=== PATIENT | female | born 1950 | race African-American/Black ===

== ENCOUNTER → 2017-09-08 | Outpatient (CLI) | payer MEDICARE ==
--- NOTE | 2017-09-08 14:09 | Diagnostic Imaging Report ---
PROCEDURE: Frontal and lateral views of the chest. COMPARISON: None. INDICATIONS: SHORTNESS OF BREATH, CHEST PAIN FINDINGS: Lines/tubes: None. Lungs: The lungs are well inflated and clear. There is no evidence of pneumonia or pulmonary edema. Pleura: There is no pleural effusion or pneumothorax. Heart and mediastinum: Mild enlargement of the cardiac silhouette. Aortic calcifications. Bones: No acute bony abnormality. Mild degenerative changes of the thoracic spine. IMPRESSION: Mild cardiomegaly. No acute cardiopulmonary disease. Dictated by: Colby Reese M.D. on 09/08/2017 at 14:13 Electronically approved by: Colby Reese M.D. on 09/08/2017 at 14:13
--- NOTE | 2017-09-08 14:11 | Diagnostic Imaging Report ---
PROCEDURE:X-RAY LEFT KNEE, THREE OR MORE VIEWS COMPARISON:None. INDICATIONS:LEFT KNEE PAIN FINDINGS: The bones are well-mineralized. There are no fractures, subluxations, lytic or blastic lesions. Tricompartmental degenerative changes, moderate in the patellofemoral compartment and mild in the lateral and medial compartments. Small patellar enthesophytes. There is a small suprapatellar joint effusion. CONCLUSION: Tricompartmental degenerative changes of the knee. Small joint effusion. Dictated by: Colby Reese M.D. on 09/08/2017 at 14:15 Electronically approved by: Colby Reese M.D. on 09/08/2017 at 14:15
== END ==
LOC: RAD 13:15
PROVIDERS: ATTEND Family Medicine
DX: I11.0 Hypertensive heart disease with heart failure (principal); M25.562 Pain in left knee
CPT/HCPCS: 71046

== ENCOUNTER → 2018-04-18 | Outpatient (CLI) | payer MEDICARE ==
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
== END ==
LOC: RAD 13:59
PROVIDERS: ATTEND Family Medicine
DX: M54.5 Low back pain (principal)
CPT/HCPCS: 72100

== ENCOUNTER → 2018-05-16 | Outpatient (CLI) | payer OTHER ==
--- NOTE | 2018-05-16 16:39 | Diagnostic Imaging Report ---
Exam: Bilateral knees 3 views History: Knee pain Comparison: None. Findings: Motion artifact limits the right knee AP film. No acute, displaced fracture or dislocation. There is symmetric moderate tricompartmental joint space narrowing with marginal osteophytosis, subchondral sclerosis, and subchondral cystic changes. Soft tissues unremarkable. Impression: Moderate symmetric bilateral tricompartmental degenerative joint disease. Signed by: Dr. Enio Rosales M.D. on 05/16/2018 4:36 PM
== END ==
LOC: RAD 15:18
PROVIDERS: ATTEND Family Medicine
DX: M25.562 Pain in left knee (principal); M25.561 Pain in right knee

== ENCOUNTER → 2018-06-16 | Outpatient (CLI) | payer MEDICARE ==
--- NOTE | 2018-06-16 16:35 | Diagnostic Imaging Report ---
Radiographs of the right and left knee - 3 views each knee HISTORY: Pain COMPARISON: None available. FINDINGS: Bones: No acute displaced fracture. Osseous alignment is within normal limits. Joints: Moderate tricompartmental degenerative arthrosis. No osseous erosion. Soft tissues: The soft tissues appear unremarkable. IMPRESSION: Moderate tricompartmental degenerative arthrosis. No osseous erosion. Signed by: Dr. Alf Lynch M.D. on 06/16/2018 4:31 PM
== END ==
LOC: RAD 15:54
PROVIDERS: ATTEND Family Medicine
DX: M25.562 Pain in left knee (principal); M25.561 Pain in right knee

== ENCOUNTER 2019-10-21 21:40 | Emergency (ER) | payer MEDICARE ==
[~2019-10-21] VITALS: Ht 157.5 cm; Wt 98.0 kg
[2019-10-21] MEDS ORDERED: KETOROLAC TROMETHAMINE 30 MG/ML VIAL IV STA (22:11)
--- NOTE | 2019-10-21 22:13 | Emergency Department Note ---
History of Present Illnes History of Present Illness Chief Complaint: Flank Pain History of Present Illness This is a 69 year old female . Arrival Mode: Car Realtime Reporter Required: No Onset (how long ago): week(s) (4 weeks) Location: left flank radiating to the front and chest Quality: sharp Radiation: Reports abdomen (and burning in the chest) Severity: moderate Onset quality: sudden (seen 3 weeks ago in a different ER told she has kidney stones) Duration (how long): week(s) (4) Timing of current episode: constant Progression: unchanged Chronicity: new Relieving factors: none Exacerbating factors: none, movement (from side to side or with bending of the abdomen) Associated symptoms: Reports chest pain (pain starts in the abdomen and radiates into the chest described as burning) Treatments prior to arrival: none Risk factors: htn hx of kidney stones Past Medical/Family History Physician Review I have reviewed the patient's past medical and family history. Any updates have been documented here. Past Medical History Recent Fever: No Clinical Suspicion of Infectio: No New/Unexplained Change in Ment: No Past Medical History: Hypertension Past Surgical History: None Social History Smoking Cessation: Never Smoker Alcohol Use: None Any Illegal Drug Use: No Physically hurt or threatened: No Other Any Pre-Existing Lines (PICC,: No Review of Systems Review of Systems Constitutional: Reports no symptoms EENTM: Reports no symptoms Cardiovascular: Reports as per HPI Respiratory: Reports no symptoms Gastrointestinal: Reports as per HPI Genitourinary: Reports no symptoms Musculoskeletal: Reports no symptoms Integumentary: Reports no symptoms Neurological: Reports no symptoms Psychological: Reports no symptoms Endocrine: Reports no symptoms Hematological/Lymphatic: Reports no symptoms Review of other systems: All other systems negative Physical Exam Related Data Vital signs reviewed: Yes Physical Exam CONSTITUTIONAL Constitutional: Present well-developed, Present well-nourished HENT HENT: Present normocephalic, Present atraumatic EYES Eyes: Reports PERRL, Reports conjunctivae normal, Reports EOM normal, Reports lids normal NECK Neck: Present ROM normal, Present supple PULMONARY Pulmonary: Present effort normal, Present breath sounds normal CARDIOVASCULAR Cardiovascular: Present regular rhythm, Present heart sounds normal, Present intact distal pulses, Present capillary refill normal, Present normal rate GASTROINTESTINAL Abdominal: Present soft, Present bowel sounds normal, Present tender (epigastric area and left flank), Present left CVA tenderness GENITOURINARY Genitourinary: Present exam deferred SKIN Skin: Present warm, Present dry MUSCULOSKELETAL Musculoskeletal: Present ROM normal, Present edema NEUROLOGICAL Neurological: Present alert, Present oriented x 3, Present DTRs normal, Present no gross motor or sensory deficits PSYCHOLOGICAL Psychological: Present mood/affect normal, Present behavior normal, Present thought content normal, Present judgement normal Results Laboratory Laboratory cbc mild anemia ow wnl chem wnl except creat 1.2 cardiac markers wnl Laboratory comments ua dip WNL Imaging Imaging results reviewed: Yes Impressions ct abd/pelvis severe coronary artery calcifications. gall stones without evidence of acute cholycystitis. No kidney or urethral stones. Diverticulosis without evidence if diverticulitis. No acute abdominal process Diagnostics Tests Diagnostic test(s) reviewed: Yes Diagnostic comments ekg interpreted by me NSR rate 72 axis intrevals WNl no st t wave changes. Sinus arrhythmia Assessment & Plan Medical Decision Making MDM pain continuous for 1 month as per patient Cardiac christensen negative in the ED. Pain clearly flack radiating to the abdomen and the chest. Pt needs further work up by her PMD. Will start the patient on prilosec to see if this helps her pain. Also will give ultram for pain Reassessment Reassessment time: 00:25 Reassessment still co left flank pain worse with movement. Stressed to pt need to follow up with PMD . Also told her that she could return for any further problems Assessment & Plan Final Impression: (1) Flank pain Depart Disposition: HOME, SELF-alf Meds Active Scripts Omeprazole Magnesium (PRILOSEC) 10 Mg Suspdr.pkt, 20 MG PO DAILY for abdominal pain for 30 Days, #30 0 Refills Prov:LINDA SHAH MD 10/22/19 Tramadol Hcl* (ULTRAM 50MG*) 50 Mg Tab, 50 MG PO Q6H PRN for PAIN, #14 TAB 0 Refills Prov:LINDA SHAH MD 10/22/19 LINDA SHAH MD Oct 21, 2019 22:13
[2019-10-21] MEDS ORDERED: KETOROLAC TROMETHAMINE 30 MG/ML VIAL ONE (22:38)
--- OUTSIDE RECORDS SUMMARY | 2019-10-21 22:55 | XMS REPORT | Encounter Summary ---
Author Organization Unknown Address [address] [place] [address] Phone [phone] Care Team Providers Care Lace Finisher Name Role Phone Dr. Nigel Velarde 3 [phone] Nigel Velarde Jr, MD 3 [phone] Seth Xie DPM 120 [phone] Jane Franco MD 122 [phone] Reason for Visit Peripheral vascular disease; Quality BMI DEPRESSION FALL; AWV Annual Wellness Visit Female (VFP); hypertension Instructions 1. Adult health examination 2. Body mass index 40+ - severely obese learning about healthy weight body mass index: care instructions 3. Morbid obesity learning about healthy weight 4. Peripheral vascular disease 5. Advance directive discussed with jean pierre ent advance care planning: care instructio ns 6. Depression screening 7. At risk for falls preventing falls: care instructions 8. Hypertensive heart disease with conge stive heart failure CMP, serum or plasma carvedilol 25 mg tablet Daily Multivitamin-Minerals tablet 9. Angina pectoris 10. Impaired fasting glycaemia HbA1c (hemoglobin A1c), blood Discussion Note: None recorded. Plan of Care Patient Instructions Screening Recommendations 1. Vaccines Pneumococcal: Recommended today Influenza: Recommended today Shingles: Recommended today Tetanus: Recommended today 2. Mammography Screening: discussed to y and information sent with patient in their Annual Wellness health folder 3. Colorectal cancer Screening Colonoscopy: discussed today and information sent with patient in their Annual Wellness health folder Fecal Occult Blood: discussed today and information sent with patient in their Annual Wellness health folder 4. Bone Mass Measurement: discussed to 5. Pap test / Pelvic Exam Screening: No screening necessary 6. Eye Exam Screening: discussed today 7. Cholesterol Screening: discussed to y 8. Diabetes Screening: discussed today It was good to see you in the office today for your Medicare Annual Wellness Visit. You have been provided some information on healthy nutrition, including a diet rich in fruits and vegetables, minimizing simple carbohydrates, salt, and saturated fats. I want to encourage regular cardiovascular exercise such as walking at least 30 minutes daily, 5 times per week. Please remember to schedule any preventive health measures that we talked about today. You have also been provided education on fall prevention and community- based lifestyle interventions to help reduce health risks and promote healthy living in your Annual Wellness folder. Reminders Provider Appointments Est Patient 08/22/2018 2:00PM Nigel perez Jr, MD Lab CMP, Serum or Plasma 05/23/2018 [facility] Laboratory HbA1C (Hemoglobin a1C), Blood 05/23/2018 [facility] Laboratory Referral None recorded. Procedures None recorded. Surgeries None recorded. Imaging None recorded. Medications Name Start Date amlodipine 10 mg tablet Take 1 tablet every day by oral route. carvedilol 12.5 mg tablet Take 1 tablet twice a day by oral route for 90 days. carvedilol 25 mg tablet Take 1 tablet twice a day by oral route for 90 days. Daily Multivitamin-Minerals tablet Take 1 tablet every day by oral route for 90 days. naproxen 500 mg tablet Take 1 tablet twice a day by oral route for 15 days. triamcinolone acetonide 0.1 % topical oi ntment APPLY A THIN LAYER TO THE AFFECTED AREA(S) BY TOPICAL ROUTE 2 TIMES PER DAY valsartan 320 mg tablet Take 1 tablet every day by oral route for 90 days. Medications Administered None recorded. Vitals Height Weight BMI Blood Pressure 5 ft 2 in 231 lbs 42.3 kg/m2 148/88 mm[Hg] Lab Results None recorded. Allergies Code Code System Name Reaction Severity Status Onset NKDA Problems Name Status Onset Date Source Generalized Anxiety Disorder Active 06/28/2017 Morbid Obesity Active 06/29/2017 Benzodiazepine Dependence Active 06/29/2017 Peripheral Venous Insufficiency Active 06/29/2017 Osteoarthritis Active 06/29/2017 Aortic Valve Disorder Active 07/16/2017 Angina Pectoris Active 07/16/2017 Left Ventricular Hypertrophy Active 07/16/2017 Peripheral Vascular Disease Active 08/19/2017 Claudication Active 08/19/2017 Hypertensive Heart Disease with Congestive Heart Failure Active 09/07/2017 Chronic Obstructive Lung Disease Active 01/25/2018 Inflammation of Sacroiliac Joint Active 04/25/2018 Atherosclerosis of Aorta Active 05/21/2018 Procedures Date Name Performed by Tubal Ligation Information not avai lable 05/06/2018 CT, Angiogram, Abdominal Aorta, W/ Runof f, W/ Contrast [facility] [place] [address] [place] [address] (Work Place) 05/11/2018 XR, Knee, [address] [facility] (Imaging Scheduling) [address] [place] [address] (Work Place) Vaccine List None recorded. Social History Smoking Status Former Smoker (1 2 PPD) Past Encounters 05/23/2018 Adult Health Examination; Body Mass Index 40+ - Severely Obese; Morbid Obesity; Peripheral Vascular Disease; Advance Directive Discussed with Patient; Depression Screening; At Risk for Falls; Hypertensive Heart Disease with Congestive Heart Failure; Angina Pectoris; Impaired Fasting Glycaemia Nigel Velarde Jr, MD: [address] [facility], [address], [place] [address], Ph. History of Present Illness Hypertension Reported By: Patient HPI: Severity: mild. Onset/Timing : gradual onset. Alleviating Factors: relieved with rest, medication. Self Care: not under emotional stress, blood pressure goal: 130/80. Associated Symptoms: no shortness of breath, no fatigue, no decline in exercise capacity Hyperlipidemia Reported By: Patient HPI: Type of hyperlipidemia: comb ined, hypercholesterolemia. Duration: chronic. Current Therapy: currently taking:. Complications: no coronary artery disease Review of Systems Comprehensive General Adult ROS Reported By: Patient Constitutional: Constitutional: no significa nt weight gain, no significant weight loss Cardiovascular: Cardiovascular: no chest aneudy n, no shortness of breath when walking Respiratory: Respiratory: no cough, no wh eezing, no shortness of breath Endocrine: Endocrine: no fatigue Physical Exam Cardiology Exam Reported By: Patient Constitutional: General Appearance: well-nou rished, well-developed, appears stated age. Level of Distress: comfortable Lungs: Respiratory Effort: unlabore d. Chest Exam: no chest wall tenderness. Auscultation: clear, no wheezing, no rales, no rhonchi Cardiovascular: Rate And Rhythm: regular. He art Sounds: normal S1, physiologically split S2, no rub, no gallop, no click. Systolic Murmur: not heard. Diastolic Murmur: not heard. Extremities: no cyanosis, no edema, no peripheral signs of emboli Peripheral Pulses: Pulses: full and equal in al l extremities except if noted Skin: Inspection and Palpation: wa rm and dry
--- OUTSIDE RECORDS SUMMARY | 2019-10-21 22:55 | XMS REPORT | Encounter Summary ---
Author Organization Unknown Address [address] [place] [address] Phone [phone] Care Team Providers Care Plant Propagator Name Role Phone Dr. Nigel Velarde 3 [phone] Nigel Velarde Jr, MD 3 [phone] Seth Xie DPM 120 [phone] Jane Franco MD 122 [phone] Reason for Visit Peripheral vascular disease; Quality [...] your Annual Wellness folder. Reminders Provider Appointments None recorded. Lab CMP, Serum or Plasma 05/23/2018 [facility] Laboratory HbA1C (Hemoglobin a1C), Blood 05/23/2018 [facility] Laboratory Referral None recorded. Procedures None [...] Abdominal Aorta, W/ Runof f, W/ Contrast [facility] [place] [address] [place] [address] (Work Place) 05/11/2018 XR, Knee, 3 View Patients [facility] (Imaging Scheduling) [address] [place] [address] (Work Place) Vaccine List None recorded. Social History Smoking Status Former Smoker (1 2 PPD) Past Encounters 05/23/2018 Adult Health Examination; Body Mass Index 40+ - Severely Obese; Morbid Obesity; Peripheral Vascular Disease; Advance Directive Discussed with Patient; Depression Screening; At Risk for Falls; Hypertensive Heart Disease with Congestive Heart Failure; Angina Pectoris; Impaired Fasting Glycaemia Nigel Velarde Jr, MD: [address] [facility], [address], [place] [address], Ph. History of Present Illness Hypertension Reported [...]
--- OUTSIDE RECORDS SUMMARY | 2019-10-21 22:55 | XMS REPORT | Summary of Care ---
Author Author JOSE BYERS Organization Unknown Address Unknown Phone Unavailable Care Team Providers Care Radiologist Physician Name Role Phone SOULEYMANE BYERS Unavailable Unavailable DIEUDONNE HOOD, VIRGINIA LAIRD Unavailable Unavailable GLEN HOOD, LADRAIUS Unavailable Unavailable SOULEYMANE STARR Unavailable Unavailable ANTELMO CASAS MD Unavailable Unavailable Unavailable Unavailable Functional Status Name Dates Details Functional status health issues are not documented Status: Name Dates Details Cognitive status health issues are not d ocumented Status: Problems Name Dates Details Active medical history not documented Status: Medications Name Dates Details Medications not documented Allergies and Adverse Reactions Name Dates Details Allergy history not documented Status: Procedures Procedure Dates Details Procedures not documented Immunization Name Dates Details Immunizations not documented Social History Name Dates Details Tobacco smoking consumption unknown (finding) Vital Signs Date Test Result Details No Known Vitals to report Results Date Description Value Details Results not documented Plan of Care Name Dates Details Planned Observations Planned Goals not documented Instructions Name Dates Details Instructions not documented Encounters Appointment; SOULEYMANE BYERS Encounter Diagnosis: Problem not documented On: 22-Nov-2018 8:30 Appointment; ANTELMO CASAS M.D. Encounter Diagnosis: Problem not documented On: 22-Nov-2018 9:00 Appointment; SOULEYMANE BYERS Encounter Diagnosis: Problem not documented On: 20-Jul-2019 13:30 Appointment; SOULEYMANE BYERS Encounter Diagnosis: Problem not documented On: 10-Aug-2019 14:30
--- OUTSIDE RECORDS SUMMARY | 2019-10-21 22:55 | XMS REPORT | Clinical Summary ---
Author Author [facility] Address Unknown Phone Unavailable Care Team Providers Care Stock Buyer Name Role Phone Nigel Velarde MD PCP Allergies No Known Allergies Medications End Date Status Medication Sig Dispensed Refills Start Date Active amLODIPine (NORVASC) 5 mg amlodipine 5 0 tablet mg tablet Take 1 tablet every day by oral route for 90 days. Active valsartan 160 MG tablet 1 Take by mouth 0 tablet, daily. hydroCHLOROthiazide 25 MG tablet 1 tablet Active gabapentin (NEURONTIN) TAKE 1 90 capsule 0 100 mg capsule CAPSULE BY 9 MOUTH THREE TIMES DAILY FOR 30 DAYS Active Problems Problem Noted Date Bilateral foot pain 06/20/2018 Last Assessment & Plan: Suspect neuropathy is the predominant c ause of her bilateral foot pain. She has bilateral palpable pedal pulses . Recommended trial of gabapentin which I prescribed to her. We will fol low her up in 1 month. Family History Medical History Relation Name Comments Circulation Problems with Mother Legs Relation Name Status Comments Mother Social History Date Tobacco Use Types Packs/Day Years Used Quit: 03/15/1979 Former Smoker Smokeless Tobacco: Never Used Drinks/Week oz/Week Comments Alcohol Use Yes Sex Assigned at Date Recorded Not on file Industry Job Start Date Occupation Not on file Not on file Not on file Travel End Travel History Travel Start No recent travel history available. Last Filed Vital Signs Not on file Plan of Treatment Health Maintenance Due Date Last Done Comments BREAST CANCER SCREENING 10/04/2001 COLONOSCOPY SCREENING 10/04/2001 SHINGLES VACCINES (#1) 10/04/2001 65+ PNEUMOCOCCAL VACCINE 10/04/2016 (1 of 2 - PCV13) INFLUENZA VACCINE 10/14/2019 Results Not on fileafter 10/20/2018 Insurance Type Payer Benefit Subscriber ID Effective Phone Address Plan / Dates Group HMO HU[employer]NA MEDICARE HUMANA HMO xxxxxxxxx [id number] GOLD PLUS resent MEDICARE Advance Directives For more information, please contact: [phone] Patient Surgery Tech Explanation Type Date Recorded Advance Directives, Living Will and Medical Power of Casualty Claims Supervisor
--- OUTSIDE RECORDS SUMMARY | 2019-10-21 22:55 | XMS REPORT | Encounter Summary ---
Author Organization Unknown Address [address] [place] [address] Phone [phone] Care Team Providers Care Paint Supervisor Name Role Phone Dr. Nigel Velarde 3 [phone] Nigel Velarde Jr, MD 3 [phone] Seth Xie DPM 120 [phone] Jane Franco MD 122 [phone] Reason for Visit muscle cramps; hypertension Instructions 1. Hypertensive heart disease with conge stive heart failure 2. Screening for cardiovascular system d isease ankle brachial index - Peripheral Snehal ry Disease Ratio (QuantaFlo) 3. Peripheral vascular disease Discussion Note: None recorded. Patient educational handouts: No information available. Plan of Care Reminders Provider Appointments None recorded. Lab None recorded. Referral None recorded. Procedures None recorded. Surgeries None recorded. Imaging Ankle Brachial Index 04/21/2018 [facility] Medications Name Start Date amlodipine 10 mg [...] BMI Blood Pressure 5 ft 2 in 227 lbs 41.5 kg/m2 (1) 164/82 mm[H g] (2) 132/82 mm[Hg] Lab Results Date Name Specimen Result Interpretation Description Value Range Status Address Ankle Brachial Index Result: Significant [facility]: [address] Allergies Code Code System Name Reaction Severity [...] 09/07/2017 Chronic Obstructive Lung Disease Active 01/25/2018 Procedures Date Name Performed by Tubal Ligation Information not avai lable 04/07/2018 XR, Lumbosacral Spine, 2 or 3 View Patie [facility] (Imaging Scheduling) [address] [place], [place] [id number] (Work Place) 04/21/2018 Ankle Brachial Index [facility] [address] [address] (Work Place) Vaccine List None recorded. Social History Smoking Status Former Smoker (1 1/2 PPD) Past Encounters 04/21/2018 Hypertensive Heart Disease with Congestive Heart Failure; Screening for Cardiovascular System Disease; Peripheral Vascular Disease Nigel Velarde Jr, MD: [address] [address], Ph. 04/07/2018 Hypertensive Heart Disease with Congestive Heart Failure; Chronic Obstructive Lung Disease; Chronic Low Back Pain; Eczema; Foot Callus; Single Major Depressive Episode; Morbid Obesity Nigel Velarde Jr, MD: [address] [address], Ph. History of Present Illness Hypertension Reported By: Patient HPI: Severity: mild. Onset/Timing : gradual onset. Alleviating Factors: relieved with rest, medication. Self Care: not under emotional stress, blood pressure goal: 130/80. Associated Symptoms: no shortness of breath, no fatigue, no decline in exercise capacity Review of Systems Comprehensive General Adult ROS [...] Lungs: Respiratory Effort: unlabore d. Chest Exam: normal curvature, no thoracic deformity, no chest wall tenderness. Auscultation: clear, no wheezing, no rales, no rhonchi Cardiovascular: Rate And Rhythm: regular. He art Sounds: normal S1, physiologically split S2, no rub, no gallop, no click. Systolic Murmur: not heard. Diastolic Murmur: not heard. Extremities: no cyanosis, no edema, no peripheral signs of emboli Peripheral Pulses: Pulses: full and equal in al l extremities except if noted. Radial Pulse: normal Skin: Inspection and Palpation: wa rm and dry. Nails: no clubbing
--- OUTSIDE RECORDS SUMMARY | 2019-10-21 22:55 | XMS REPORT | Encounter Summary ---
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 Nigel Velarde 3 [phone] Nigel Velarde Jr, MD 3 [phone] Jane Franco MD 122 [phone] Reason for Visit Bilateral foot pain Instructions 1. Hypertensive heart disease with conge stive heart failure valsartan 320 mg tablet amlodipine 10 mg tablet 2. Chronic obstructive lung disease 3. Chronic low back pain XR, lumbosacral spine, 2 or 3 view 4. Eczema triamcinolone acetonide 0.1 % topical ointment 5. Foot callus podiatry referral naproxen 500 mg tablet 6. Single major depressive episode depression treatment: care instruction s 7. Morbid obesity Discussion Note: None recorded. Plan of Care Reminders Provider Appointments Est Patient 04/21/2018 1:30PM Nigel perez Jr, MD Lab None recorded. Referral Podiatry Referral 04/07/2018 Procedures None recorded. Surgeries None recorded. Imaging XR, Lumbosacral Spine, 2 or 3 View 04/07/2018 Medications Name Start Date amlodipine 10 mg [...] ft 2 in 227 lbs 41.5 kg/m2 180/84 mm[Hg] Lab Results None recorded. Allergies Code [...] XR, Lumbosacral Spine, 2 or 3 View Infor mation not available Vaccine List None recorded. Social History Smoking Status Former Smoker (1 2 PPD) Past Encounters 04/07/2018 Hypertensive Heart Disease with Congestive Heart Failure; Chronic Obstructive Lung Disease; Chronic Low Back Pain; Eczema; Foot Callus; Single Major Depressive Episode; Morbid Obesity Nigel Velarde Jr, MD: [id number] [facility], [address], [place] [address], Ph. History of Present Illness Musculoskeletal Pain Reported By: Patient HPI: Location: pain is not radiat ing, bilateral foot. Quality: dull. Severity: worsening. Duration: present <1 month. Timing: constant. Alleviating factors: rest. Aggravating factors: movement/positioning. Associated Symptoms: no fever, no weak limbs, no tingling, no numbness of the legs/feet Review of Systems Comprehensive Adult Problem ROS Reported By: Patient Constitutional: Constitutional: no significa nt weight change, good appetite Cardiovascular: Cardiovascular: no chest aneudy n Musculoskeletal: Musculoskeletal: no soft tis jessica swelling, no joint swelling, moves all extremities well, no previous injuries, no trauma Skin: Skin: no redness, no skin le sions, no swelling, no bruising Neurological symptoms: Neuro: no numbness, no weakn ess, no tingling Physical Exam Musculoskeletal and Joint Ex am, Neurology Exam, Foot Only (Brief) Reported By: Patient Musculoskeletal System: Musculoskeletal System beryl l range of motion in all peripheral joints Constitutional: Weight: well-nourished. Ambu lation: ambulates independently Head: Size/Trauma: normocephalic Mental Status: Orientation oriented to pers on, oriented to place, oriented to time. Mood/Affect: appropriate mood, appropriate affect. Language: has spontaneous speech. Memory: recent memory intact, remote memory intact. Fund of Knowledge: current events, past history Dermatological: Skin Foot Right hyperpigment ation, plantar; callous. Skin Foot Left hyperpigmentation, plantar; callous
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
--- OUTSIDE RECORDS SUMMARY | 2019-10-21 22:55 | XMS REPORT | Summary of Care ---
Author Author JOSE BYERS Organization Unknown Address Unknown Phone Unavailable Care Team Providers Care Topstitcher Zigzag Name Role Phone SOULEYMANE BYERS Unavailable Unavailable DIEUDONNE HOOD, VIRGINIA LAIRD Unavailable Unavailable GLEN HOOD, LADARIUS Unavailable Unavailable SOULEYMANE STARR Unavailable Unavailable ANTELMO [...] Details Planned Observations Planned Goals not documented Planned Encounters Appointment; SOULEYMANE BYERS On: 10-Aug-2019 14:30 Instructions Name Dates Details Instructions not documented Encounters Appointment; SOULEYMANE BYERS Encounter Diagnosis: Problem not documented On: 22-Nov-2018 8:30 Appointment; ANTELMO CASAS M.D. Encounter Diagnosis: Problem not documented On: 22-Nov-2018 9:00 Appointment; SOULEYMANE BYERS Encounter Diagnosis: Problem not documented On: 20-Jul-2019 13:30
--- OUTSIDE RECORDS SUMMARY | 2019-10-21 22:55 | XMS REPORT ---
Author Organization Unknown Address [address] [place] [id number] Phone [phone] Care Team Providers Care Documentation Writer Name Role Phone Nigel Velarde Jr Unavailable Unavailable Allergies Code Code System Name Reaction Severity Status Onset NKDA Medications Name Status Start Date Stop Date amlodipine 5 mg tablet Take 1 tablet every day by oral route. Active Not available clonazepam 0.5 mg tablet Take 1 tablet twice a day by oral route for 30 days. Active Not available hydrochlorothiazide 25 mg tablet Take 1 tablet every day by oral route for 90 days. Active Not available lisinopril 40 mg tablet Take 1 tablet every day by oral route for 90 days. Completed 06/28/2017 meloxicam 15 mg tablet Take 1 tablet every day by oral route for 90 days. Active Not available potassium chloride ER 10 mEq tablet,exte nded release Take 1 tablet every day by oral route. Active Not available sertraline 50 mg tablet Take 1 tablet every day by oral route. Active Not available valsartan 320 mg tablet Take 1 tablet every day by oral route. Active Not available Problems Name Status Onset Date Source Generalized Anxiety Disorder Active 06/28/2017 Benign Essential Hypertension Active 06/28/2017 Morbid Obesity Active 06/29/2017 Benzodiazepine Dependence Active 06/29/2017 Peripheral Venous Insufficiency Active 06/29/2017 Osteoarthritis Active 06/29/2017 Procedures Date Name Performed by 06/28/2017 Electrocardiogram [facility] [employer] [address] [id number] (Work Place) 06/28/2017 XR, Chest, 2 View [facility] [employer] [address] [phone] (Work Place) Notes: Patient indicated no previous meggan geries on (06/28/2017) Lab Results Date Name Specimen Result Interpretation Description Value Range Status Address Urinalysis, Dipstick Color Color light yell [facility] - [place]: [address] [place] Color Appearance clear [facility] - [place]: [address] [place] Color Glucose negative [facility] - [place]: [address] [place] Color Bilirubin negative [facility] - [place]: [address] [place] Color Ketones trace [facility] - [place]: [address], [place] Color Specific [place] 1.025 [facility] - [place]: [address] [place] Color Blood negative [facility] - [place] [address] [place] Color PH 5.5 [facility] - [place]: [address] [place] Color Protein 30 [facility] - [place]: [address] [place] Color Urobilinogen 0.2 [facility] - [place]: [address] [place] Color Nitrites negative [facility] - [place]: [address] [place] Color Leukocytes negative [facility] - [place]: [address] [place] Past Encounters 06/28/2017 Adult Health Examination; Body Mass Index 30+ - Obesity; Obesity; Advance Directive Discussed with Patient; Depression Screening; At Risk for Falls; Benign Essential Hypertension; Peripheral Venous Insufficiency; Chest Pain; Impaired Glucose Tolerance; Morbid Obesity; Osteoarthritis; Generalized Anxiety Disorder; Benzodiazepine Dependence; Cramp in Lower Limb; Screening for Disorder; Screening for Cardiovascular System Disease; Immunization Refused Nigel Velarde Jr, MD: [address] [facility], [address], [place] [address], Ph. Social History Smoking Status Never Smoker Vaccine List None recorded. Plan of Care Patient Instructions Screening Recommendations 1. Vaccines Pneumococcal: Recommended today Influenza: Recommended today Shingles: Recommended today Tetanus: discussed today and information sent with patient in their [facility] folder 2. Mammography Screening: discussed to y and information sent with patient in their [facility] folder 3. Colorectal cancer Screening Colonoscopy: Recommended today Fecal Occult Blood: Recommended today 4. Bone Mass Measurement: discussed toda y 5. Pap test / Pelvic Exam Screening: dis cussed today 6. Eye Exam Screening: discussed today 7. Cholesterol Screening: Ordered 8. Diabetes Screening: Ordered It was go od to see you in the office today [...] risks and promote healthy living in your [facility] folder. Reminders Provider Appointments None recorded. Lab None recorded. Referral None recorded. Procedures None recorded. Surgeries None recorded. Imaging None recorded. Vitals Height Weight BMI Blood Pressure 5 ft 2 in 213 lbs 39 kg/m2 184/90 mm[Hg]
--- NOTE | 2019-10-22 00:02 | Diagnostic Imaging Report ---
EXAM: CT Abdomen and Pelvis WITHOUT contrast INDICATION: rule out kidney stones COMPARISON: None. TECHNIQUE: Abdomen and pelvis were scanned utilizing a multidetector helical scanner from the lung base to the pubic symphysis without administration of IV contrast. Absence of intravenous contrast decreases sensitivity for detection of focal lesions and vascular pathology. Coronal and sagittal reformations were obtained. Routine protocol was performed. IV CONTRAST: None ORAL CONTRAST: None COMPLICATIONS: None RADIATION DOSE: Total DLP: 720.58 mGy*cm Estimated effective dose: (DLP x 0.015 x size factor) mSv CTDIvol has been reviewed. It is below the limits set by the Radiation Protocol Committee (RPC). Dose modulation, iterative reconstruction, and/or weight based adjustment of the mA/kV was utilized to reduce the radiation dose to as low as reasonably achievable. FINDINGS: LINES and TUBES: None. LOWER THORAX: Severe coronary artery calcifications. HEPATOBILIARY: No focal hepatic lesions. No biliary ductal dilation. GALLBLADDER: Cholelithiasis without evidence of acute cholecystitis. SPLEEN: No splenomegaly. PANCREAS: No focal masses or ductal dilatation. ADRENALS: No adrenal nodules KIDNEYS/URETERS: No hydronephrosis. No cystic or solid mass lesions. No stones. GI TRACT: No abnormal distention, wall thickening, or evidence of bowel obstruction. Appendix is normal. Colonic diverticulosis without evidence of acute diverticulitis. PELVIC ORGANS/BLADDER: Unremarkable. LYMPH NODES: No lymphadenopathy. VESSELS: Scattered atherosclerotic calcifications of the aorta and its major branches. No aortic aneurysm. Pelvic phleboliths. PERITONEUM / RETROPERITONEUM: No free air or fluid. BONES: Degenerative changes of the lumbar spine.. SOFT TISSUES: Unremarkable. IMPRESSION: 1. No urinary tract calculi identified. No hydronephrosis. 2. Cholelithiasis without evidence of acute cholecystitis. 3. Colonic diverticulosis without evidence of acute diverticulitis. 4. No acute abdominopelvic process. Signed by: Des Corrigan MD on 10/21/2019 11:59 PM
[2019-10-22] MEDS ORDERED: PRILOSEC10 M1 PO (00:25)
[2019-10-22] MEDS ORDERED: ULTRAM 50MG50 MG PO (00:25)
[2019-10-22] MEDS ORDERED: TRAMADOL HCL 50 MG TAB ONE (01:19)
[2019-10-22] MEDS ORDERED: TRAMADOL HCL 50 MG TAB PO ONE (01:30)
== END 2019-10-22 01:55 | disposition home or self-care (01) ==
LOC: FSED 21:50
DX: R10.9 Unspecified abdominal pain (principal); I10 Essential (primary) hypertension
CPT/HCPCS: 74176; 80053; 81003; 82553; 84484; 85025; 93005; 99284; J1885

== ENCOUNTER 2020-06-23 06:10 | Emergency (ER) | payer MEDICARE ==
[~2020-06-23] VITALS: Ht 157.5 cm; Wt 93.9 kg
[~2020-06-23 06:10] MED LIST: PRILOSEC10 M1 PO; ULTRAM 50MG50 MG PO
[2020-06-23] MEDS ORDERED: ONDANSETRON HCL INJ 2MG/ML 2ML 2 MG/ML VIAL IV STA ×2 (06:29→08:25)
[2020-06-23] MEDS ORDERED: SODIUM CHLORIDE 0.9% 1000ML 1,000 ML IV STA (06:29)
[2020-06-23] MEDS ORDERED: FAMOTIDINE 20 MG/2 ML VIAL IV STA (06:33)
[2020-06-23] MEDS ORDERED: SODIUM CHLORIDE 0.9% 1000ML 1,000 ML ONE (06:59)
[2020-06-23] MEDS ORDERED: FAMOTIDINE 20 MG/2 ML VIAL IV ONE (06:59)
[2020-06-23] MEDS ORDERED: ONDANSETRON HCL INJ 2MG/ML 2ML 2 MG/ML VIAL ONE ×2 (06:59→08:30)
[2020-06-23 07:37] LABS: BASOPHILS # (AUTO) 0.1 (0.0-0.1); BASOPHILS % 0.5 % (0.0-1.0); EOSINOPHILS # (AUTO) 0.1 (0.0-0.4); EOSINOPHILS % 1.2 % (0.0-6.0); HEMATOCRIT 37.2 % (34.2-44.1); LYMPHOCYTES # (AUTO) 1.9 (1.0-3.2); LYMPHOCYTES % 21.2 % (18.0-39.1); MEAN CORPUSCULAR HEMOGLOBIN 29.5 pg (28-32); MEAN CORPUSCULAR HGB CONC 32.3 g/dL (31-35); MEAN CORPUSCULAR VOLUME 91.4 fL (81-99); MONOCYTES # (AUTO) 0.8 (0.2-0.8); MONOCYTES % 8.9 % (4.4-11.3); NEUTROPHILS # (AUTO) 6.2 (2.1-6.9); NEUTROPHILS % 67.9 % (38.7-80.0); PLATELET COUNT 220 x10e3/uL (140-360); RED BLOOD COUNT 4.07 x10e6/uL (3.6-5.1); RED CELL DISTRIBUTION WIDTH 13.7 % (11.7-14.4)
[2020-06-23 07:54] LABS: CREATINE KINASE MB 0.8 ng/mL (0-5.0)
[2020-06-23 08:08] LABS: ALANINE AMINOTRANSFERASE 14 IU/L (0-55); ALBUMIN 3.7 g/dL (3.5-5.0); ALBUMIN/GLOBULIN RATIO 0.9 (0.8-2.0); ALKALINE PHOSPHATASE 110 IU/L (40-150); ANION GAP 13.5 mmol/L (8-16); BLOOD UREA NITROGEN 13 mg/dL (7-26); BUN/CREATININE RATIO 15 (6-25); CALCIUM 8.8 mg/dL (8.4-10.2); CARBON DIOXIDE 29 mmol/L (22-29); CHLORIDE 104 mmol/L (98-107); CREATININE, SERUM 0.84 mg/dL (0.57-1.11); EST GLOMERULAR FILTRATION RATE > 60 ML/MIN (60-); GLUCOSE 109 mg/dL (74-118); POTASSIUM 3.5 mmol/L (3.5-5.1); SODIUM 143 mmol/L (136-145)
[2020-06-23] MEDS ORDERED: MORPHINE SULFATE INJ 4 MG/ML INJ 1ML IV PRN (08:30)
[2020-06-23] MEDS ORDERED: MORPHINE SULFATE INJ 4 MG/ML INJ 1ML ONE (08:30)
[2020-06-23] MEDS ORDERED: IOPAMIDOL 370 MG/ML 200 ML INFUS..BTL INJ ONE (08:31)
[2020-06-23] MEDS ORDERED: SODIUM CHLORIDE 0.9% 50ML 50 ML ONE (08:31)
[2020-06-23] MEDS ORDERED: SPIRONOLACTONE25 MG PO (09:51)
[2020-06-23] MEDS ORDERED: CARVEDILOL12.5 MG PO (09:51)
[2020-06-23] MEDS ORDERED: MELOXICAM7.5 MG PO (09:51)
[2020-06-23] MEDS ORDERED: ATORVASTATIN CA20 MG PO (09:51)
[2020-06-23] MEDS ORDERED: VITAMIN B-121000 MCG PO (09:51)
[2020-06-23] MEDS ORDERED: VITAMIN D3250 MCG (09:51)
[2020-06-23] MEDS ORDERED: MEDROL4 MG PO (09:51)
[2020-06-23] MEDS ORDERED: FUROSEMIDE40 MG PO (09:51)
[2020-06-23] MEDS ORDERED: DIOVAN160 MG PO (09:51)
[2020-06-23] MEDS ORDERED: KETOROLAC TROMETHAMINE 30 MG/ML VIAL ONE (10:09)
[2020-06-23] MEDS ORDERED: ONDANSETRON ODT4 MG PO (10:30)
[2020-06-23] MEDS ORDERED: PREDNISONE20 MG PO (10:30)
[2020-06-23] MEDS ORDERED: ULTRAM50 MG PO (10:30)
[2020-06-23] MEDS ORDERED: KETOROLAC TROMETHAMINE 30 MG/ML VIAL IV STA (10:41)
[2020-06-23 10:42] VITALS: BP 165/79
== END 2020-06-23 10:53 | disposition home or self-care (01) ==
LOC: FSED 06:24
DX: R10.11 Right upper quadrant pain (principal); R10.12 Left upper quadrant pain; R11.0 Nausea; K80.20 Calculus of gallbladder without cholecystitis without obstruction; I16.0 Hypertensive urgency; I44.0 Atrioventricular block, first degree; I10 Essential (primary) hypertension; Z20.822 Contact with and (suspected) exposure to COVID-19
CPT/HCPCS: 36415; 74177; 76705; 80053; 81003; 82550; 82553; 83690; 84484; 85025; 93005; 96374; 96375; 99284; J1885; J2270; J2405; J7030; Q9967; U0002

== ENCOUNTER 2021-04-16 23:50 | Inpatient (IN) | payer MEDICARE ==
[~2021-04-16] VITALS: Ht 157.5 cm; Wt 93.9 kg
[~2021-04-16 23:50] MED LIST changes: +ATORVASTATIN CA20 MG PO; +CARVEDILOL12.5 MG PO; +DIOVAN160 MG PO; +FUROSEMIDE40 MG PO; +MEDROL4 MG PO; +MELOXICAM7.5 MG PO; +ONDANSETRON ODT4 MG PO; +PREDNISONE20 MG PO; +SPIRONOLACTONE25 MG PO; +ULTRAM50 MG PO; +VITAMIN B-121000 MCG PO; +VITAMIN D3250 MCG
[2021-04-17] VITALS (8 sets, daily range): BP systolic 119–171; BP diastolic 61–80
[2021-04-17] MEDS ORDERED: FAMOTIDINE 20 MG/2 ML VIAL IV STA (00:38)
[2021-04-17] MEDS ORDERED: ONDANSETRON HCL INJ 2MG/ML 2ML 2 MG/ML VIAL IV STA (00:38)
[2021-04-17] MEDS ORDERED: KETOROLAC TROMETHAMINE 30 MG/ML VIAL IV STA ×2 (00:38→00:49)
[2021-04-17] MEDS ORDERED: SODIUM CHLORIDE 0.9% 1000ML 1,000 ML IV SCH (00:45)
[2021-04-17] MEDS ORDERED: SODIUM CHLORIDE 0.9% 500ML 500 ML IV ONE (01:00)
[2021-04-17] MEDS ORDERED: SODIUM CHLORIDE 0.9% 50ML 50 ML ONE (01:02)
[2021-04-17] MEDS ORDERED: IOPAMIDOL 370 MG/ML 200 ML INFUS..BTL INJ ONE (01:03)
[2021-04-17] MEDS ORDERED: KETOROLAC TROMETHAMINE 30 MG/ML VIAL ONE (01:12)
[2021-04-17] MEDS ORDERED: SODIUM CHLORIDE 0.9% 1000ML 1,000 ML ONE (01:12)
[2021-04-17] MEDS ORDERED: FAMOTIDINE 20 MG/2 ML VIAL IV ONE (01:13)
[2021-04-17] MEDS: PIPERACILLIN/TAZOBACTAM 3.375 GM in SODIUM CHLORIDE 0.9% 50ML 50 ML IV SCH ×4 (03:03→18:01)
[2021-04-17] MEDS: SODIUM CHLORIDE 0.9% 1000ML 1,000 ML IV SCH ×2 (03:03→05:04)
[2021-04-17] MEDS ORDERED: PIPERACILLIN/TAZOBACTAM 3.375 GM VIAL ONE (03:08)
[2021-04-17] MEDS ORDERED: SODIUM CHLORIDE 0.9% 100 ML ONE (03:09)
[2021-04-17] MEDS ORDERED: HYDRALAZINE HCL 20 MG/ML VIAL IV PRN (07:15)
[2021-04-17 08:06] LABS: BASOPHILS # (AUTO) 0.1 (0.0-0.1); BASOPHILS % 0.5 % (0.0-1.0); EOSINOPHILS # (AUTO) 0.1 (0.0-0.4); EOSINOPHILS % 0.7 % (0.0-6.0); HEMATOCRIT 37.4 % (34.2-44.1); HEMOGLOBIN 11.5 g/dL (12.0-16.0); LYMPHOCYTES # (AUTO) 1.5 (1.0-3.2); LYMPHOCYTES % 12.6 % (18.0-39.1); MEAN CORPUSCULAR HEMOGLOBIN 28.9 pg (28-32); MEAN CORPUSCULAR HGB CONC 30.7 g/dL (31-35); MONOCYTES # (AUTO) 1.2 (0.2-0.8); NEUTROPHILS # (AUTO) 8.7 (2.1-6.9); NEUTROPHILS % 75.9 % (38.7-80.0); PLATELET COUNT 203 x10e3/uL (140-360); RED BLOOD COUNT 3.98 x10e6/uL (3.6-5.1); RED CELL DISTRIBUTION WIDTH 12.6 % (11.7-14.4)
[2021-04-17] MEDS: Morphine 4mg Syringe 4 MG/ML INJ IV PRN ×4 (08:21→18:27)
[2021-04-17 08:24] LABS: ALBUMIN/GLOBULIN RATIO 0.8 (0.8-2.0); ANION GAP 11.5 mmol/L (8-16); CALCIUM 8.5 mg/dL (8.4-10.2); CREATININE, SERUM 0.8 mg/dL (0.57-1.11); POTASSIUM 3.5 mmol/L (3.5-5.1)
[2021-04-17] MEDS: CARVEDILOL 12.5 MG TAB PO SCH ×2 (09:46→18:01)
[2021-04-17] MEDS: SPIRONOLACTONE 25 MG TAB PO SCH ×2 (09:46→18:05)
[2021-04-17] MEDS: CYANOCOBALAMIN 1,000 MCG TAB PO SCH (09:47)
[2021-04-17] MEDS: VALSARTAN 160 MG TAB PO SCH (09:47)
[2021-04-17] MEDS: FUROSEMIDE 40 MG TAB PO SCH ×2 (09:47→18:01)
[2021-04-17 10:08] LABS: AMYLASE 53 U/L (25-125); LIPASE 13 U/L (8-78)
[2021-04-17] MEDS: KETOROLAC TROMETHAMINE 30 MG/ML VIAL IV PRN ×3 (12:18→21:30)
[2021-04-17] MEDS ORDERED: BUPIVACAINE HCL 0.5% INJ 30 ML VIAL INJ ONE (12:42)
[2021-04-17] MEDS ORDERED: NEOSTIGMINE 1 MG/ML 10ML VIAL ONE (12:51)
[2021-04-17] MEDS ORDERED: NALOXONE HCL INJ 0.4 MG/ML AMP ONE (12:51)
[2021-04-17] MEDS ORDERED: DEXAMETHASONE SOD PHOS INJ 4 MG/ML SDV ONE (12:51)
[2021-04-17] MEDS ORDERED: ROCURONIUM BROMIDE 10 MG/ML 5ML VIAL IV ONE (12:51)
[2021-04-17] MEDS ORDERED: ONDANSETRON HCL INJ 2MG/ML 2ML 2 MG/ML VIAL ONE (12:51)
[2021-04-17] MEDS ORDERED: EPHEDRINE SULFATE INJ 50 MG/ML VIAL ONE (12:51)
[2021-04-17] MEDS ORDERED: PROPOFOL IV EMULSION 10 MG/ML 20 ML VIAL ONE (12:51)
[2021-04-17] MEDS ORDERED: LIDOCAINE HCL 2% LOCAL INJ 5 ML SDV VIAL INJ ONE (12:51)
[2021-04-17] MEDS ORDERED: POVIDONE IODINE 0.05% 0.05 % ML PO ONE (12:51)
[2021-04-17] MEDS ORDERED: ATROPINE SULFATE 1 MG/ML VIAL ONE (12:51)
[2021-04-17] MEDS ORDERED: FENTANYL CITRATE/PF 100MCG/2 ML INJ ONE (13:09)
[2021-04-17] MEDS ORDERED: MIDAZOLAM HCL 2 MG/2 ML VIAL ONE (13:09)
[2021-04-17] MEDS: ATORVASTATIN 20 MG TAB PO SCH (21:29)
[2021-04-18] VITALS (8 sets, daily range): BP systolic 96–139; BP diastolic 42–60
[2021-04-18] MEDS: PIPERACILLIN/TAZOBACTAM 3.375 GM in SODIUM CHLORIDE 0.9% 50ML 50 ML IV SCH ×4 (00:07→17:32)
[2021-04-18] MEDS: SODIUM CHLORIDE 0.9% 1000ML 1,000 ML IV SCH ×3 (00:09→16:16)
[2021-04-18] MEDS: Morphine 4mg Syringe 4 MG/ML INJ IV PRN (02:58)
[2021-04-18 05:02] LABS: BASOPHILS # (AUTO) 0.1 (0.0-0.1); BASOPHILS % 0.3 % (0.0-1.0); EOSINOPHILS % 0.1 % (0.0-6.0); HEMATOCRIT 34.2 % (34.2-44.1); HEMOGLOBIN 10.7 g/dL (12.0-16.0); LYMPHOCYTES # (AUTO) 1.1 (1.0-3.2); LYMPHOCYTES % 7.1 % (18.0-39.1); MEAN CORPUSCULAR HEMOGLOBIN 29.2 pg (28-32); MEAN CORPUSCULAR HGB CONC 31.3 g/dL (31-35); MEAN CORPUSCULAR VOLUME 93.2 fL (81-99); MONOCYTES # (AUTO) 1.2 (0.2-0.8); MONOCYTES % 7.6 % (4.4-11.3); NEUTROPHILS # (AUTO) 13.3 (2.1-6.9); NEUTROPHILS % 84.3 % (38.7-80.0); PLATELET COUNT 197 x10e3/uL (140-360); RED BLOOD COUNT 3.67 x10e6/uL (3.6-5.1); RED CELL DISTRIBUTION WIDTH 12.8 % (11.7-14.4)
[2021-04-18 05:37] LABS: ALBUMIN 2.7 g/dL (3.5-5.0); ALBUMIN/GLOBULIN RATIO 0.6 (0.8-2.0); CALCIUM 8.4 mg/dL (8.4-10.2); CREATININE, SERUM 1.09 mg/dL (0.57-1.11)
[2021-04-18] MEDS: KETOROLAC TROMETHAMINE 30 MG/ML VIAL IV PRN ×3 (06:08→21:10)
[2021-04-18] MEDS: ONDANSETRON HCL INJ 2MG/ML 2ML 2 MG/ML VIAL IV PRN (06:43)
[2021-04-18] MEDS: CYANOCOBALAMIN 1,000 MCG TAB PO SCH (08:34)
[2021-04-18] MEDS: CARVEDILOL 12.5 MG TAB PO SCH ×2 (09:00→16:17)
[2021-04-18] MEDS: VALSARTAN 160 MG TAB PO SCH (09:00)
[2021-04-18] MEDS: SPIRONOLACTONE 25 MG TAB PO SCH ×2 (09:20→16:17)
[2021-04-18] MEDS: FUROSEMIDE 40 MG TAB PO SCH ×2 (09:23→16:17)
[2021-04-18] MEDS: ATORVASTATIN 20 MG TAB PO SCH (21:10)
[2021-04-19] VITALS (8 sets, daily range): BP systolic 113–155; BP diastolic 56–69
[2021-04-19] MEDS: PIPERACILLIN/TAZOBACTAM 3.375 GM in SODIUM CHLORIDE 0.9% 50ML 50 ML IV SCH ×5 (00:45→23:51)
[2021-04-19] MEDS: SODIUM CHLORIDE 0.9% 1000ML 1,000 ML IV SCH ×4 (00:46→23:51)
[2021-04-19] MEDS: ONDANSETRON HCL INJ 2MG/ML 2ML 2 MG/ML VIAL IV PRN ×2 (00:58→23:52)
[2021-04-19] MEDS: Morphine 4mg Syringe 4 MG/ML INJ IV PRN (00:58)
[2021-04-19 05:12] LABS: BASOPHILS % 0.4 % (0.0-1.0); EOSINOPHILS # (AUTO) 0.2 (0.0-0.4); EOSINOPHILS % 1.9 % (0.0-6.0); HEMATOCRIT 32.6 % (34.2-44.1); HEMOGLOBIN 9.9 g/dL (12.0-16.0); LYMPHOCYTES % 20.8 % (18.0-39.1); MEAN CORPUSCULAR HEMOGLOBIN 29.3 pg (28-32); MEAN CORPUSCULAR HGB CONC 30.4 g/dL (31-35); MEAN CORPUSCULAR VOLUME 96.4 fL (81-99); MONOCYTES # (AUTO) 0.8 (0.2-0.8); MONOCYTES % 8.7 % (4.4-11.3); NEUTROPHILS # (AUTO) 6.4 (2.1-6.9); NEUTROPHILS % 67.9 % (38.7-80.0); PLATELET COUNT 188 x10e3/uL (140-360); RED BLOOD COUNT 3.38 x10e6/uL (3.6-5.1); RED CELL DISTRIBUTION WIDTH 13.2 % (11.7-14.4)
[2021-04-19 05:42] LABS: ALBUMIN 2.4 g/dL (3.5-5.0); ALBUMIN/GLOBULIN RATIO 0.6 (0.8-2.0); ANION GAP 10.4 mmol/L (8-16); CALCIUM 8.1 mg/dL (8.4-10.2); CREATININE, SERUM 0.99 mg/dL (0.57-1.11); POTASSIUM 3.4 mmol/L (3.5-5.1)
[2021-04-19] MEDS: SPIRONOLACTONE 25 MG TAB PO SCH ×2 (08:42→16:07)
[2021-04-19] MEDS: CARVEDILOL 12.5 MG TAB PO SCH ×2 (08:43→16:14)
[2021-04-19] MEDS: FUROSEMIDE 40 MG TAB PO SCH ×3 (08:44→16:07)
[2021-04-19] MEDS: VALSARTAN 160 MG TAB PO SCH (08:44)
[2021-04-19] MEDS: CYANOCOBALAMIN 1,000 MCG TAB PO SCH (08:45)
[2021-04-19] MEDS: KETOROLAC TROMETHAMINE 30 MG/ML VIAL IV PRN ×2 (08:46→23:52)
[2021-04-19] MEDS ORDERED: POTASSIUM CHLORIDE 20 MEQ TAB CR PO STA (08:55)
[2021-04-19] MEDS ORDERED: POTASSIUM CHLORIDE 10MEQ EA PO NR (15:15)
[2021-04-19] MEDS: ATORVASTATIN 20 MG TAB PO SCH (21:05)
[2021-04-20] VITALS: BP 155/69
[2021-04-20 04:10] VITALS: BP 169/67
[2021-04-20] MEDS: PIPERACILLIN/TAZOBACTAM 3.375 GM in SODIUM CHLORIDE 0.9% 50ML 50 ML IV SCH (05:23)
[2021-04-20 06:19] LABS: BASOPHILS % 0.4 % (0.0-1.0); EOSINOPHILS # (AUTO) 0.3 (0.0-0.4); EOSINOPHILS % 3.9 % (0.0-6.0); HEMATOCRIT 30.9 % (34.2-44.1); HEMOGLOBIN 9.4 g/dL (12.0-16.0); LYMPHOCYTES # (AUTO) 1.8 (1.0-3.2); LYMPHOCYTES % 23.7 % (18.0-39.1); MEAN CORPUSCULAR HGB CONC 30.4 g/dL (31-35); MEAN CORPUSCULAR VOLUME 95.4 fL (81-99); MONOCYTES # (AUTO) 0.7 (0.2-0.8); NEUTROPHILS # (AUTO) 4.6 (2.1-6.9); NEUTROPHILS % 62.5 % (38.7-80.0); PLATELET COUNT 206 x10e3/uL (140-360); RED BLOOD COUNT 3.24 x10e6/uL (3.6-5.1); RED CELL DISTRIBUTION WIDTH 12.9 % (11.7-14.4)
[2021-04-20 06:33] LABS: ANION GAP 10.6 mmol/L (8-16); CALCIUM 8.1 mg/dL (8.4-10.2); CREATININE, SERUM 0.92 mg/dL (0.57-1.11); POTASSIUM 3.6 mmol/L (3.5-5.1)
[2021-04-20] MEDS: CARVEDILOL 12.5 MG TAB PO SCH (08:10)
[2021-04-20] MEDS: SPIRONOLACTONE 25 MG TAB PO SCH (08:16)
[2021-04-20 08:17] VITALS: BP_SYST 120; BP_SYST 155; BP_DIAS 64; BP_DIAS 77
[2021-04-20] MEDS: VALSARTAN 160 MG TAB PO SCH (08:17)
[2021-04-20] MEDS: CYANOCOBALAMIN 1,000 MCG TAB PO SCH (08:17)
[2021-04-20] MEDS: FUROSEMIDE 40 MG TAB PO SCH (08:17)
[2021-04-20 11:30] VITALS: BP 176/74
== END 2021-04-20 15:00 | disposition home or self-care (01) | DRG 417 ==
LOC: FSED 04-17 00:16 → ERHOLD 04-17 02:53 → IMCU 04-17 04:38 → OBSVTOIN 04-18 13:01
PROVIDERS: ADMIT Internal Medicine; ATTEND Internal Medicine
PROC: 0FT44ZZ Resection of Gallbladder, Percutaneous Endoscopic Approach (ICD-10-PCS; principal; 2021-04-17 13:30)
DX: K80.00 Calculus of gallbladder with acute cholecystitis without obstruction (principal); U07.1 COVID-19; I10 Essential (primary) hypertension; E78.5 Hyperlipidemia, unspecified; M54.50 Low back pain, unspecified; G89.29 Other chronic pain; I11.0 Hypertensive heart disease with heart failure; I50.9 Heart failure, unspecified; E87.6 Hypokalemia
CPT/HCPCS: 36415; 74177; 80048; 80053; 80076; 81003; 82150; 82553; 83690; 84484; 85025; 87040; 88304; 93005; 96360; 99284; G0378; J0461; J1100; J1885; J2001; J2250; J2270; J2310; J2405; J2543; J2710; J3010; J7030; J7050; Q9967; U0002

== ENCOUNTER 2021-08-21 15:31 | Emergency (ER) | payer MEDICARE ==
[~2021-08-21] VITALS: Ht 157.5 cm; Wt 89.5 kg
[2021-08-21] MEDS ORDERED: HYDRALAZINE HCL 20 MG/ML VIAL IV STA ×2 (15:54→17:12)
[2021-08-21] MEDS ORDERED: IOPAMIDOL 370 MG/ML 100 ML INFUS..BTL INJ ONE (16:07)
[2021-08-21] MEDS ORDERED: Morphine 4mg Syringe 4 MG/ML INJ IV STA (16:10)
[2021-08-21] MEDS ORDERED: ONDANSETRON HCL INJ 2MG/ML 2ML 2 MG/ML VIAL IV STA (16:10)
[2021-08-21] MEDS ORDERED: HYDRALAZINE HCL 20 MG/ML VIAL ONE (16:45)
[2021-08-21] MEDS ORDERED: ONDANSETRON HCL INJ 2MG/ML 2ML 2 MG/ML VIAL ONE (16:46)
[2021-08-21] MEDS ORDERED: Morphine 4mg Syringe 4 MG/ML INJ ONE (16:46)
== END 2021-08-21 17:45 | disposition home or self-care (01) ==
LOC: FSED 15:35
DX: R10.32 Left lower quadrant pain (principal); I10 Essential (primary) hypertension; K57.90 Diverticulosis of intestine, part unspecified, without perforation or abscess without bleeding; M79.605 Pain in left leg; I50.9 Heart failure, unspecified; E78.5 Hyperlipidemia, unspecified; M54.9 Dorsalgia, unspecified; G89.29 Other chronic pain
CPT/HCPCS: 74177; 80048; 80076; 81003; 85025; 96374; 96375; 96376; 99284; J0360; J2270; J2405; Q9967

== ENCOUNTER 2024-05-30 16:08 | Emergency (ER) | payer MEDICARE ==
[~2024-05-30] VITALS: Ht 157.5 cm; Wt 94.8 kg
[2024-05-30] MEDS: HYDRALAZINE HCL 20 MG/ML VIAL IV STA (17:02)
[2024-05-30] MEDS ORDERED: CLONIDINE HCL 0.2 MG TAB ONE (17:17)
[2024-05-30] MEDS: CLONIDINE HCL 0.1 MG TAB PO ONE (17:30)
[2024-05-30] MEDS: NIFEDIPINE 10 MG CAP PO STA (18:42)
[2024-05-30 20:46] VITALS: PULSE 63; RESP 18; TEMP 97.8
[2024-05-30 21:25] VITALS: BP 145/67; PULSE 73; TEMP 97.8; O2SAT 98
== END 2024-05-30 21:35 | disposition home or self-care (01) ==
LOC: FSED 16:14
DX: I16.0 Hypertensive urgency (principal); R20.0 Anesthesia of skin; I10 Essential (primary) hypertension; Z87.442 Personal history of urinary calculi
CPT/HCPCS: 70450; 71046; 80053; 81003; 83880; 84484; 85025; 93005; 96374; 99284; J0360; 80076